=== PATIENT | female | born 1980 | race Caucasian/White ===

== ENCOUNTER 2018-07-26 16:05 | Emergency (ER) | payer BC ==
--- OUTSIDE RECORDS SUMMARY | 2018-07-26 16:30 | XMS REPORT | Continuity of Care Document ---
:1980 External Reference #:[id number] Author Name Jarrett Long M.D. Address [address] [place] [address] Care Team Providers Name Role Phone [facility] Primary Care Physician Unavailable Payers Type Date Identification Numbers Payment Provider Subscriber Effective: 2010 Policy Number: [id number] BC/BS Of [employer] Name: Steven Dacosta Ppo [employer] [address] [address] PayID: [id number] [place] [address] Advance Directives Description No Information Available Problems Date Description Provider Status Onset: 07/24/2018 Allergic rhinitis due to pollen Jarrett Long M.D. Active Family History Date Family Member(s) Problem(s) Comments General Diabetes General Food Allergy General Thyroid Disease Father Diabetes Mother Thyroid Disease First Sister Food Allergy gluten Social History Type Date Description Comments Sex Unknown Marital Status Has been 1 time Lives With Spouse Lives With Sons Home Environment Does not use air [employer] medical [employer] Home Environment Has a window air conditioner Home Environment Stairs are present Home Environment Unfinished Basement Home Environment Musty Basement Home Environment The basement is wet and dehumidifier used Home Environment Cotton Comforter Home Environment Mattress is 2 years old Home Environment Mattress is encased in an allergy proof case Home Environment Regular Mattress Home Environment Pillows are encased in an allergy proof case Home Environment Pillows are polyester Home Environment Uses a dehumidifier Home Environment There are draperies in the home Home Environment The home is not trisha Home Environment The floors are wood Home Environment Uses forced air heating Home Environment Lives [place] Home Environment Water Source: [facility] Smoke-Free Home is smoke-free Smoke-Free Work is smoke-free Pets 1 dog Pets Animals sleep in bedroom Occupation purchasing ETOH Use Denies alcohol use Tobacco Use Start: Unknown Patient has never smoked Recreational Drug Use Denies Drug Use Smoking Status Reviewed: 07/24/18 Patient has never smoked Allergies, Adverse Reactions, Alerts Date Description Reaction Status Severity Comments Amoxicillin Active rash Medications Medication Date Status Form Strength Qnty SIG Indications Ordering Provider Qnasl Active Aerosol 80mcg/Act 8.700gm two J30.1 Jarrett 019 squirts in Wendy Long each nostril once daily Theresa Active Tablets 180mg 90tabs 1 by mouth J30.1 Jarrett Allergy 019 every day Wendy Long Prednisone Active Tablets 10mg 10tabs 20 mg po J30.1 Jarrett 019 once a day Wendy Long for 5 days Theresa D Active 12HR 180unit One Tab Jluis 008 s Twice A Chrostows Day prn Wendy coombs June08/10 Active Tablets 1-20mg-mcg once a day Unknown 000 Medications Administered in Office Medication Date Status Form Strength Qnty SIG Indications Ordering Provider Injection Administered Injection Jluis [place] Reed M.D. Injection Administered Injection Jluis [place] Reed M.D. Injection Administered Injection Jluis [place] Reed M.D. Injection Administered Injection Jluis [place] Reed M.D. Injection Administered Injection Juan M Serrano M.D. Injection Administered Injection Jluis [place] Reed M.D. Injection Administered Injection Jluis [place] Reed M.D. Injection Administered Injection Jluis [place] Reed M.D. Injection Administered Injection Jluis [place] Reed M.D. Injection Administered Injection Jluis [place] Reed M.D. Injection Administered Injection Jluis [place] Reed M.D. Injection Administered Injection Jluis [place] Reed M.D. Injection Administered Injection Jluis 009 Chrostowski, M.D. Injection Administered Injection Jluis 009 Chrostowski, M.D. Injection Administered Injection Jluis 009 Chrostowski, M.D. Injection Administered Injection Jluis 009 Chrostowski, M.D. Injection Administered Injection Jluis 009 Chrostowski, M.D. Injection Administered Injection Jluis 009 Chrostowski, M.D. Injection Administered Injection Jluis 009 Chrostowski, M.D. Injection Administered Injection Jluis 009 Chrostowski, M.D. Injection Administered Injection Jluis 008 Chrostowski, M.D. Injection Administered Injection Melchor 008 Brissa, M.D. Injection Administered Injection Jluis 008 Chrostowski, M.D. Injection Administered Injection Jluis 008 Chrostowski, M.D. Injection Administered Injection Jluis 008 Chrostowski, M.D. Injection Administered Injection Jluis 008 Chrostowski, M.D. Injection Administered Injection Jluis 008 Chrostowski, M.D. Injection Administered Injection Jluis 008 Chrostowski, M.D. Injection Administered Injection Jluis 008 Chrostowski, M.D. Injection Administered Injection Jluis 008 Chrostowski, M.D. Injection Administered Injection Jlius 008 Chrostowski, M.D. Injection Administered Injection Jluis 008 Chrostowski, M.D. Injection Administered Injection Melchor 008 Brissa, M.D. Injection Administered Injection Melchor 008 Brissa, M.D. Injection Administered Injection Jluis 008 Chrostowski, M.D. Injection Administered Injection Jluis 008 Chrostowski, M.D. Injection Administered Injection Jluis 008 Chrostowski, M.D. Injection 03/24/2 Administered Injection Jluis 008 Chrostowski, M.D. Injection Administered Injection Jluis 008 Chrostowski, M.D. Injection Administered Injection Jluis 008 Chrostowski, M.D. Injection Administered Injection Jluis 008 Chrostowski, M.D. Injection Administered Injection Jluis 008 Chrostowski, M.D. Injection Administered Injection Jluis 008 Chrostowski, M.D. Injection Administered Injection Jluis 008 Chrostowski, M.D. Injection Administered Injection Jluis 007 Chrostowski, M.D. Injection Administered Injection Jluis 007 Chrostowski, M.D. Injection Administered Injection Jluis 007 Chrostowski, M.D. Injection Administered Injection Jluis 007 Chrostowski, M.D. Injection Administered Injection Jluis 007 Chrostowski, M.D. Injection Administered Injection Jluis 007 Chrostowski, M.D. Injection Administered Injection Jluis 007 Chrostowski, M.D. Injection Administered Injection Jluis 007 Chrostowski, M.D. Injection Administered Injection Jluis 007 Chrostowski, M.D. Injection Administered Injection Jluis 007 Chrostowski, M.D. Injection Administered Injection Jluis 007 Chrostowski, M.D. Injection Administered Injection Jluis 007 Chrostowski, M.D. Injection Administered Injection Jluis 007 Chrostowski, M.D. Injection Administered Injection Jluis 007 Chrostowski, M.D. Injection Administered Injection Jluis 007 Chrostowski, M.D. Injection Administered Injection Jluis 007 Chrostowski, M.D. Injection Administered Injection Jluis 007 Chrostowski, M.D. Injection Administered Injection Jluis 007 Chrostowski, M.D. Injection 08/10/2 Administered Injection Jluis 007 Chrostowski, M.D. Injection Administered Injection Jluis Reed M.D. Injection Administered Injection Jluis Reed M.D. Injection Administered Injection Jluis Reed M.D. Injection Administered Injection Jluis Reed M.D. Injection Administered Injection Jluis Reed M.D. Injection Administered Injection Jluis Reed M.D. Immunizations CPT Code Status Date Vaccine Lot # [id number] Given Unknown Influenza Vaccine Vital Signs Date Vital Result Comment 07/24/2018 1:26pm Height 60.5 inches 5'0.50" Weight 139.00 lb Weight 63.050 kg Respiratory Rate 16 /min Heart Rate 64 /min O2 % BldC Oximetry 97 % BP Systolic 110 mmHg BP Diastolic 65 mmHg BMI (Body Mass Index) 26.7 kg/m2 Results Description No Information Available Procedures Date Code Description Status 07/24/2018 97767 Skin Test Scratch # Of Units ____ Completed 07/20/2009 37012 Injection Completed 07/06/2009 27500 Injection Completed 06/10/2009 56865 Injection Completed 05/11/2009 67783 Injection Completed 04/27/2009 01134 Injection Completed 04/13/2009 74068 Injection Completed 03/30/2009 84847 Injection Completed 03/16/2009 50303 Injection Completed 03/02/2009 58121 Injection Completed 02/16/2009 13842 Injection Completed 02/02/2009 92025 Injection Completed 01/19/2009 70395 Injection Completed 01/05/2009 74055 Injection Completed 12/22/2008 37864 Injection Completed 12/17/2008 42181 Extract 1-10 Completed 12/08/2008 72885 Injection Completed 11/24/2008 70617 Injection Completed 10/27/2008 78716 Injection Completed 09/29/2008 06195 Injection Completed 09/01/2008 79306 Injection Completed 08/06/2008 05705 Injection Completed 07/07/2008 78190 Injection Completed 06/09/2008 06253 Injection Completed 05/12/2008 38860 Injection Completed 04/28/2008 55706 Injection Completed 04/23/2008 98987 Extract 1-10 Completed 04/14/2008 01290 Injection Completed 03/29/2008 98578 Injection Completed 03/19/2008 45190 Injection Completed 03/01/2008 77024 Injection Completed 02/16/2008 74631 Injection Completed 02/04/2008 01017 Injection Completed 01/21/2008 95852 Injection Completed 01/05/2008 90747 Injection Completed 12/22/2007 17495 Injection Completed 12/08/2007 22488 Injection Completed 12/03/2007 52557 Extract 1-10 Completed 11/24/2007 46395 Injection Completed 11/10/2007 57310 Injection Completed 10/27/2007 02288 Injection Completed 10/13/2007 22032 Injection Completed 09/29/2007 54454 Injection Completed 09/15/2007 79431 Injection Completed 09/01/2007 51811 Injection Completed 08/18/2007 52915 Injection Completed 08/04/2007 07562 Injection Completed 07/23/2007 75042 Injection Completed 07/18/2007 41399 Extract 1-10 Completed 07/09/2007 98170 Injection Completed 06/30/2007 27463 Injection Completed 06/25/2007 09607 Injection Completed 06/18/2007 15121 Injection Completed 06/09/2007 23956 Injection Completed 06/06/2007 60402 Injection Completed 05/26/2007 55906 Injection Completed 05/12/2007 33387 Injection Completed 05/05/2007 41972 Injection Completed 04/28/2007 62406 Injection Completed 04/21/2007 46996 Injection Completed 04/18/2007 01660 Injection Completed 04/07/2007 70259 Injection Completed 03/31/2007 31523 Injection Completed 03/28/2007 64626 Extract 1-10 Completed 03/26/2007 07673 Injection Completed 03/17/2007 52259 Injection Completed 03/10/2007 79323 Injection Completed 03/05/2007 89774 Injection Completed 02/28/2007 64618 Injection Completed 02/17/2007 56784 Injection Completed 02/10/2007 61988 Injection Completed 02/03/2007 40922 Injection Completed 01/27/2007 20676 Injection Completed 01/20/2007 90260 Injection Completed 01/13/2007 42719 Injection Completed 01/08/2007 61096 Extract 1-10 Completed 12/30/2006 60655 Skin Test Scratch # Of Units ____ Completed Encounters Type Date Location Provider Dx Diagnosis Office Visit 07/24/2018 [facility] Jarrett Long M.D. J30.1 Allergic rhinitis 1:20p due to pollen Office Visit 07/28/2007 Christos Collieriusz 477.0 Rhinitis Allergic 3:15p Wendy Reed Due To Pollen 477.8 Rhinitis Allergic Due To Other Allergen Office Visit 04/14/2007 4:45p Christos Olsennetta, 477.0 Rhinitis Allergic M.D. Due To Pollen 477.8 Rhinitis Allergic Due To Other Allergen Office Visit 01/06/2007 2:00p Christos Bazzi Derek, 477.0 Rhinitis Allergic M.D. Due To Pollen 477.8 Rhinitis Allergic Due To Other Allergen Office Visit 12/30/2006 1:15p Christos Bazzi Derek, 477.0 Rhinitis Allergic M.D. Due To Pollen 477.8 Rhinitis Allergic Due To Other Allergen Plan of Treatment Future Appointment(s):07/31/2018 12:00 pm - Allergy Injection at [facility]09/04/2018 4:00 pm - Jarrett Long M.D. at [facility]07/24/2018 - Jarrett Long M.D.J30.1 Allergic rhinitis due to pollenNew Medication:Qnasl 80 mcg/Act - two squirts in each nostril once dailyAllegra Allergy 180 mg - 1 by mouth every dayPrednisone 10 mg - 20 mg po once a day for 5 daysFollow up:6 weeks for discussionRecommendations:skin testing Qnasl 2 squirt once a day to use the plane Theresa 180 mg 1 tab po once a day options of medications and Immunotherapy discussed with her prednisone 30 mg po once a day for 5 days sinus rinse skin testing strongly positive for different pollens,dust mite and dog to lesser extent to cat results discussed with her
[2018-07-26 16:43] VITALS: BP 119/76
--- NOTE | 2018-07-26 16:53 | UC ---
Respiratory Complaint HPI - HPI Summary HPI Summary: C/O 2 day history of cough congestion and sinus pain. Sweats. No wheezing. - History of Current Complaint Chief Complaint: UCGeneralIllness Stated Complaint: SORE THROAT,CONGESTION,EARS Hx Obtained From: Patient Hx Last Menstrual Period: 07/01/18 ?: No Onset/Duration: Sudden Onset, Lasting Days - 2, Worse Since - onset Timing: Constant Severity Initially: Mild Severity Currently: Moderate Pain Intensity: 5 Character: Cough: Nonproductive Aggravating Factors: Deep Breaths Alleviating Factors: Nothing Associated Signs And Symptoms: Positive: URI, Nasal Congestion, Hoarseness, Sinus Discomfort Related History: Seasonal Allergies - Allergies/Home Medications Allergies/Adverse Reactions: Allergies Allergy/AdvReac Type Severity Reaction Status Date / Time amoxicillin Allergy Rash Verified 07/26/18 16:37 Home Medications: Home Medications Fexofenadine/Pseudoephedrine [Theresa-D 24 Hour Tablet] 1 each PO DAILY [History Confirmed 07/26/18] Phenylephrine/Dm/Acetaminop/GG [Daytime Severe Cold-Flu Liquid] 30 ml PO DAILY PRN 07/26/18 [History Confirmed 07/26/18] PMH/Surg Hx/FS Hx/Imm Hx Previously Healthy: Yes - Surgical History Surgical History: Yes Surgery Procedure, Year, and Place: 2010 D/C [facility]. October 2012 - sinus/nasal surgery - Family History Known Family History: Positive: Diabetes - Social History Occupation: Employed Full-time Lives: With Family Alcohol Use: None Substance Use Type: None Smoking Status (MU): Never Smoked Tobacco Review of Systems All Other Systems Reviewed And Are Negative: Yes ENT: Positive: Sore Throat, Nasal Discharge, Sinus Congestion, Sinus Pain/ Tenderness Respiratory: Positive: Cough Physical Exam Triage Information Reviewed: Yes Appearance: No Pain Distress, Well-Nourished, Ill-Appearing Vital Signs: Initial Vital Signs Temp 98.3 F 07/26/18 16:40 Pulse 86 07/26/18 16:40 Resp 14 07/26/18 16:40 BP 119/76 07/26/18 16:40 Pulse Ox 99 07/26/18 16:40 Vital Signs Reviewed: Yes Eyes: Positive: Conjunctiva Clear ENT: Positive: Pharyngeal erythema, Nasal congestion, TMs normal Neck exam: Normal Respiratory: Positive: Lungs clear, Wheezing - just with coughing Cardiovascular Exam: Normal Musculoskeletal Exam: Normal Neurological Exam: Normal Psychological Exam: Normal Skin Exam: Normal UC Diagnostic Evaluation - Laboratory O2 Sat by Pulse Oximetry: 99 Respiratory Course/Dx - Differential Dx/Diagnosis Differential Diagnosis/HQI/PQRI: Asthma, Lower Resp Infection, Sinusitis Provider Diagnosis: Upper respiratory infection, Bronchospasm, acute, Sinusitis Discharge - Sign-Out/Discharge Documenting (check all that apply): Patient Departure All imaging exams completed and their final reports reviewed: No Studies - Discharge Plan Condition: Stable Disposition: HOME Prescriptions: DOXYcycline CAP(*) [DOXYcycline 100MG CAP(*)] 100 mg PO BID #20 cap Fluticasone NASAL SPRAY 50MCG* [Flonase NASAL SPRAY 50MCG*] 2 spray BOTH NARES DAILY #1 btl predniSONE TAB* [Deltasone 20 MG TAB*] 60 mg PO DAILY #18 tab Patient Education Materials: Upper Respiratory Infection (ED), Bronchospasm (ED ), Prednisone (By mouth), Sinusitis (ED), Doxycycline (By mouth) Referrals: No Primary Care Phys,NOPCP [Primary Care Provider] - - Billing Disposition and Condition Condition: STABLE Disposition: Home
== END 2018-07-26 17:15 | disposition home or self-care (01) ==
LOC: UCCORT 16:05
DX: J06.9 Acute upper respiratory infection, unspecified (principal); J98.01 Acute bronchospasm; J32.9 Chronic sinusitis, unspecified; Z88.0 Allergy status to penicillin
CPT/HCPCS: 99212; G0463